=== PATIENT | female | born 1935 | race Caucasian/White ===

== ENCOUNTER 2024-07-06 01:13 | Inpatient (IN) | payer BC ==
[~2024-07-06] VITALS: Ht 157.5 cm; Wt 61.2 kg
[2024-07-06] MEDS ORDERED: ESTR0.5T PO (01:38)
[2024-07-06] MEDS ORDERED: ISOS30TA9 PO (01:38)
[2024-07-06] MEDS ORDERED: EZET10TA15 PO (01:38)
[2024-07-06] MEDS ORDERED: DEXL30CA3 PO (01:38)
[2024-07-06] MEDS ORDERED: AMLO-212 PO (01:38)
[2024-07-06] MEDS ORDERED: TORS20TA3 PO (01:38)
[2024-07-06] MEDS ORDERED: COLC0.6T67 PO (01:38)
[2024-07-06] MEDS ORDERED: LOSA25TA27 PO (01:38)
[2024-07-06] MEDS ORDERED: ALLO100T56 PO (01:38)
[2024-07-06 02:20] LABS: CALCIUM 9.7 mg/dL (8.5-10.1); CARBON DIOXIDE 26 mmol/L (21-32); CHLORIDE 102 mmol/L (98-107); CREATININE 1.1 mg/dL (0.6-1.3); GLUCOSE 99 mg/dL (74-106); POTASSIUM 3.9 mmol/L (3.5-5.1); SODIUM SERUM 138 mmol/L (136-145); UREA NITROGEN, BLOOD 23 mg/dL (7-18)
[2024-07-06 02:33] LABS: ALANINE AMINOTRANSFERASE 15 U/L (14-59); ALBUMIN 3.4 g/dL (3.4-5.0); ALKALINE PHOSPHATASE 88 U/L (50-136); ASPARTATE AMINOTRANSFERASE 19 U/L (15-37); BILIRUBIN,TOTAL 0.4 mg/dL (0.2-1.0); NT-PRO BNP 590 pg/mL (0-125)
[2024-07-06] MEDS ORDERED: NITROGLYCERIN OINT 1 GM PACKET TP ONE (02:38)
[2024-07-06] MEDS: NITROGLYCERIN OINT 1 GM PACKET TP ONE (02:42)
[2024-07-06 02:49] LABS: BASOPHILS % (AUTO) 0.6 % (0.0-2.0); EOSINOPHILS # (AUTO) 0.1 K/uL (0.0-0.7); EOSINOPHILS % (AUTO) 0.7 % (0.0-7.0); HEMATOCRIT 34.1 % (31.2-41.9); HEMOGLOBIN 11.5 g/dL (10.9-14.3); LYMPHOCYTES # (AUTO) 1.5 K/uL (0.8-4.8); LYMPHOCYTES % (AUTO) 19.5 % (20.5-51.5); MEAN CORPUSCULAR HEMOGLOBIN 31.7 uug (24.7-32.8); MEAN CORPUSCULAR HGB CONC 34 g/dL (32.3-35.6); MEAN CORPUSCULAR VOLUME 93.7 fL (75.5-95.3); MONOCYTES # (AUTO) 1.1 K/uL (0.1-1.30); MONOCYTES % (AUTO) 14.3 % (0.0-11.0); NEUTROPHILS % (AUTO) 64.9 % (38.5-71.5); PLATELET COUNT (AUTO) 197 K/uL (179-408); RED BLOOD CELL COUNT(AUTO) 3.64 MIL/uL (3.63-4.92); RED CELL DISTRIBUTION WIDTH 14.1 % (12.3-17.7); WHITE BLOOD COUNT (AUTO) 7.8 K/uL (3.8-11.8)
[2024-07-06 02:50] LABS: DIFFERENTIAL COMMENT 1
[2024-07-06 03:20] LABS: *BILIRUBIN,URIN NEGATIVE (NEGATIVE); *BLOOD, URINE NEGATIVE (NEGATIVE); *CLARITY,URINE CLEAR (CLEAR); *COLOR,URINE YELLOW (YELLOW); *KETONES,URINE TRACE (NEGATIVE); *PROTEIN,URINE NEGATIVE (NEGATIVE); *UROBILINOGEN,URINE 0.2 E.U./dl (NORMAL); LEUKOCYTE ESTERASE ,URINE TRACE (NEGATIVE); NITRITE, URINE NEGATIVE (NEGATIVE); UGLUCOSE NEGATIVE (NEGATIVE)
[2024-07-06 03:30] LABS: BACTERIA,URINE NONE SEEN /HPF (NONE SEEN); RBC,URINE NONE SEEN /HPF (0-3); SQUAMOUS EPITHELIAL CELL,UR MODERATE /HPF (NONE SEEN)
[2024-07-06] MEDS ORDERED: ACETAMINOPHEN 325 MG TABLET PO PRN (04:15)
[2024-07-06] MEDS ORDERED: MORPHINE SULFATE 2 MG/1 ML DISP.SYRIN IVP PRN (04:15)
[2024-07-06] MEDS ORDERED: ONDANSETRON 4 MG/2 ML VIAL IV PRN (04:15)
[2024-07-06 08:09] VITALS: BP 163/76; TEMP 98.2; O2SAT 96
[2024-07-06] MEDS ORDERED: AMLODIPINE 5 MG TABLET PO SCH ×2 (09:00→21:00)
[2024-07-06] MEDS ORDERED: TORSEMIDE 20 MG PO SCH (09:00)
[2024-07-06] MEDS: DOCUSATE SODIUM 100 MG CAPSULE PO SCH (09:00)
[2024-07-06] MEDS: CEFTRIAXONE 1 G in IV DEXTROSE 5% 50 ML IV SCH (09:03)
[2024-07-06] MEDS: EZETIMIBE 10 MG TABLET PO SCH (09:06)
[2024-07-06] MEDS: PANTOPRAZOLE SODIUM 40 MG TABLET.DR PO SCH (09:07)
[2024-07-06] MEDS: COLCHICINE 0.6 MG TABLET PO SCH (09:07)
[2024-07-06] MEDS: ALLOPURINOL 100 MG TABLET PO SCH (09:08)
[2024-07-06] MEDS: ISOSORBIDE DINITRATE 10 MG TABLET PO SCH (09:08)
[2024-07-06] MEDS: LOSARTAN POTASSIUM 25 MG TABLET PO SCH (09:09)
[2024-07-06] MEDS: AMLODIPINE 5 MG TABLET PO ONE (09:09)
[2024-07-06] MEDS: HEPARIN SODIUM,PORCINE 5,000 UNITS/ML VIAL SQ SCH (09:10)
[2024-07-06] MEDS: FUROSEMIDE 40 MG TABLET PO SCH (10:57)
[2024-07-06 11:04] VITALS: BP 116/75; TEMP 98.4; O2SAT 98
[2024-07-06] MEDS: ESTRADIOL 1 MG TABLET PO SCH (11:12)
[2024-07-06 14:52] VITALS: BP 112/57; TEMP 97.7; O2SAT 97
[2024-07-06 19:53] VITALS: BP 131/60; TEMP 97.6; O2SAT 94
[2024-07-07 00:03] VITALS: BP 151/68; TEMP 98; O2SAT 96
[2024-07-07] MEDS: hydrALAZINE HCL 20 MG/1 ML VIAL IV PRN (03:04)
[2024-07-07 03:57] VITALS: BP 163/66; TEMP 97.5; O2SAT 96
[2024-07-07 07:37] LABS: BASOPHILS # (AUTO) 0.1 K/UL (0.0-0.2); BASOPHILS % (AUTO) 0.9 % (0.0-2.0); EOSINOPHILS % (AUTO) 0.7 % (0.0-7.0); HEMATOCRIT 34.5 % (31.2-41.9); HEMOGLOBIN 11.4 g/dL (10.9-14.3); LYMPHOCYTES # (AUTO) 2.1 K/uL (0.8-4.8); MEAN CORPUSCULAR HEMOGLOBIN 31.4 uug (24.7-32.8); MEAN CORPUSCULAR HGB CONC 33 g/dL (32.3-35.6); MEAN CORPUSCULAR VOLUME 94.8 fL (75.5-95.3); MONOCYTES # (AUTO) 0.9 K/uL (0.1-1.30); MONOCYTES % (AUTO) 13.3 % (0.0-11.0); NEUTROPHILS # (AUTO) 3.6 K/uL (1.8-8.9); NEUTROPHILS % (AUTO) 54.1 % (38.5-71.5); PLATELET COUNT (AUTO) 200 K/uL (179-408); RED BLOOD CELL COUNT(AUTO) 3.63 MIL/uL (3.63-4.92); RED CELL DISTRIBUTION WIDTH 14.3 % (12.3-17.7); WHITE BLOOD COUNT (AUTO) 6.7 K/uL (3.8-11.8)
[2024-07-07 07:48] LABS: ALANINE AMINOTRANSFERASE 13 U/L (14-59); ALKALINE PHOSPHATASE 76 U/L (50-136); ASPARTATE AMINOTRANSFERASE 18 U/L (15-37); BILIRUBIN,TOTAL 0.4 mg/dL (0.2-1.0); CARBON DIOXIDE 25 mmol/L (21-32); CHLORIDE 105 mmol/L (98-107); CREATININE 0.9 mg/dL (0.6-1.3); GLUCOSE 87 mg/dL (74-106); PHOSPHOROUS 2.9 mg/dL (2.5-4.9); POTASSIUM 4.3 mmol/L (3.5-5.1); SODIUM SERUM 139 mmol/L (136-145); TOTAL PROTEIN, SERUM 6.5 g/dL (6.4-8.2); UREA NITROGEN, BLOOD 18 mg/dL (7-18)
[2024-07-07 07:54] VITALS: BP 149/66; TEMP 97.7; O2SAT 98
[2024-07-07] MEDS: ISOSORBIDE MONONITRATE 30 MG TAB.SR.24H PO SCH (08:39)
[2024-07-07] MEDS: AMLODIPINE 5 MG TABLET PO SCH (08:44)
[2024-07-07 11:20] VITALS: BP 130/63; TEMP 97.4; O2SAT 99
[2024-07-07 15:54] VITALS: BP 124/57; TEMP 97.9; O2SAT 99
[2024-07-07 19:40] VITALS: BP 120/65; TEMP 98; O2SAT 98
[2024-07-08 00:24] VITALS: BP 150/66; TEMP 97.8; O2SAT 98
[2024-07-08 03:58] VITALS: BP 147/63; TEMP 97.9; O2SAT 98
[2024-07-08 06:54] LABS: BASOPHILS # (AUTO) 0.1 K/UL (0.0-0.2); BASOPHILS % (AUTO) 0.8 % (0.0-2.0); EOSINOPHILS # (AUTO) 0.1 K/uL (0.0-0.7); HEMATOCRIT 32.7 % (31.2-41.9); HEMOGLOBIN 11.3 g/dL (10.9-14.3); LYMPHOCYTES % (AUTO) 30.3 % (20.5-51.5); MEAN CORPUSCULAR HEMOGLOBIN 32.4 uug (24.7-32.8); MEAN CORPUSCULAR HGB CONC 35 g/dL (32.3-35.6); MEAN CORPUSCULAR VOLUME 93.9 fL (75.5-95.3); MONOCYTES % (AUTO) 14.3 % (0.0-11.0); NEUTROPHILS # (AUTO) 3.6 K/uL (1.8-8.9); NEUTROPHILS % (AUTO) 53.6 % (38.5-71.5); PLATELET COUNT (AUTO) 196 K/uL (179-408); RED BLOOD CELL COUNT(AUTO) 3.48 MIL/uL (3.63-4.92); RED CELL DISTRIBUTION WIDTH 14.2 % (12.3-17.7); WHITE BLOOD COUNT (AUTO) 6.7 K/uL (3.8-11.8)
[2024-07-08 07:04] LABS: DIFFERENTIAL COMMENT 1
[2024-07-08 07:07] LABS: CALCIUM 8.7 mg/dL (8.5-10.1); CARBON DIOXIDE 23 mmol/L (21-32); CHLORIDE 102 mmol/L (98-107); CREATININE 0.9 mg/dL (0.6-1.3); GLUCOSE 88 mg/dL (74-106); POTASSIUM 3.9 mmol/L (3.5-5.1); SODIUM SERUM 136 mmol/L (136-145); UREA NITROGEN, BLOOD 18 mg/dL (7-18)
[2024-07-08 07:22] VITALS: BP 148/64; TEMP 98; O2SAT 96
[2024-07-08 11:01] VITALS: BP 123/53; TEMP 97.7; O2SAT 98
== END 2024-07-08 13:35 | DRG 206 ==
LOC: ER 01:20 → TELE3 05:40 → MEDSURG3 07-08 09:35
PROVIDERS: ADMIT Internal Medicine; ATTEND Nurse Practitioner Family
DX: M94.0 Chondrocostal junction syndrome [Tietze] (principal); N17.9 Acute kidney failure, unspecified; G47.30 Sleep apnea, unspecified; R60.0 Localized edema; M10.9 Gout, unspecified; K21.9 Gastro-esophageal reflux disease without esophagitis; Z88.0 Allergy status to penicillin; Z88.2 Allergy status to sulfonamides; Z88.6 Allergy status to analgesic agent; Z79.899 Other long term (current) drug therapy; R79.89 Other specified abnormal findings of blood chemistry; I10 Essential (primary) hypertension; S02.2XXD Fracture of nasal bones, subsequent encounter for fracture with routine healing; W19.XXXD Unspecified fall, subsequent encounter
CPT/HCPCS: 36415; 70450; 71045; 84100; 84484; 85025; 93307; A4663; G0378; J0360; J0696; J1644; J7040; J8499